=== PATIENT | female | born 1995 | race Two or more races ===

== ENCOUNTER 2016-08-24 23:38 | Emergency (ER) | payer SELFPAY ==
[~2016-08-24] VITALS: Ht 165.1 cm; Wt 59.9 kg
[2016-08-24 23:40] VITALS: BP 121/77
[2016-08-25] MEDS ORDERED: SODIUM CHLORIDE 0.9% 1,000ML IVBOLUS ONE
[2016-08-25] MEDS ORDERED: SODIUM CHLORIDE FLUSH 10ML SYR IVF ONE
[2016-08-25 00:19] LABS: BLOOD UREA NITROGEN 17 mg/dL (7-18)
[2016-08-25 00:28] LABS: ASPARTATE AMINO TRANSFERASE 14 U/L (15-37)
[2016-08-25 00:43] LABS: DAU SCREEN DISCLAIMER
== END 2016-08-25 01:46 | disposition home or self-care (01) ==
LOC: EDBD 23:38 → ED 23:59
DX: R55 Syncope and collapse (principal)
CPT/HCPCS: 36415; 70450; 71010; 80053; 80307; 81003; 82962; 84703; 85025; 93005; 96360; 99285; J7030